=== PATIENT | female | born 2000 | race Caucasian/White ===

== ENCOUNTER → 2022-12-23 | Outpatient (CLI) | payer BC, SELFPAY ==
[2022-12-26 07:08] LABS: Chlamydia By Nucleic Acid AMP Negative (Negative); Gonococcus By Nucleic Acid AMP Negative (Negative)
[2022-12-27 18:15] LABS: HPV Reflexed? NOT INDICATED
== END | disposition home or self-care (01) ==
LOC: LABSPEC 15:35
PROVIDERS: Referring Provider Registered Nurse; Visit Provider Registered Nurse
DX: Z34.90 Encounter for supervision of normal pregnancy, unspecified, unspecified trimester (principal)
CPT/HCPCS: 87077; 87086; 87088; 87186; 87491; 87591; 88175; G0145

== ENCOUNTER → 2022-12-30 | Outpatient (CLI) | payer BC, SELFPAY ==
[2022-12-30 10:21] LABS: Absolute Lymphocyte Count 1.18 X10^3/uL (0.83-4.51); Absolute Neutrophil Count 4.1 X10^3/uL (2.0-7.7); Basophil# 0.04 X10^3/uL; Basophil% 0.7 % (0-1); Eosinophil# 0.03 X10^3/uL; Eosinophils% 0.5 % (0-5); Hemoglobin 13.3 g/dL (12.0-15.0); Lymphocyte # 1.18 X10^3/ul (0.83-4.51); Lymphocyte % 19.9 % (19-41); Mean Corp Hgb Conc 33.3 g/dL (32-36); Mean Corpuscular Hgb 30.3 pg (27.0-32.0); Mean Corpuscular Volume 91.1 fL (81-99); Mean Platelet Vol. 11.6 fl (6.2-12.0); Monocyte# 0.51 X10^3/uL; Monocyte% 8.6 % (0-10); NRBC Flagged by Analyzer 0 % (0-5); Neutrophil # 4.14 X10^3/uL (2.7-7.7); Platelet Count 163 K/mm3 (150-450); RBC Distribution Width CV 11.9 % (11.6-14.6); RBC Distribution Width SD 39.6 fl (35.1-43.9); Red Blood Count 4.39 M/mm3 (4.2-5.4); White Blood Count 5.9 K/mm3 (4.4-11.0)
[2022-12-30 10:42] LABS: Glucose Challenge Gest 1H 50g 107 mg/dL (70-140)
[2022-12-30 11:15] LABS: NATERA MAILED SPECIMEN
[2022-12-30 13:21] LABS: HIV - WCH Non-Reactive (Nonreactive); Hepatitis B Surface Antigen Non-Reactive (Nonreactive); Hepatitis C Antibody Non-Reactive (Nonreactive); Rubella IgG Reactive (Nonreactive); Syphilis Antibodies Non-reactive
== END | disposition home or self-care (01) ==
LOC: PAVLAB 09:39
PROVIDERS: Referring Provider Registered Nurse; Visit Provider Registered Nurse
DX: Z34.81 Encounter for supervision of other normal pregnancy, first trimester (principal); Z31.430 Encounter of female for testing for genetic disease carrier status for procreative management; E66.9 Obesity, unspecified
CPT/HCPCS: 36415; 82950; 85025; 86703; 86762; 86780; 86803; 86850; 86900; 86901; 87340

== ENCOUNTER → 2023-05-07 | Outpatient (CLI) | payer BC, SELFPAY ==
[2023-05-07 10:26] LABS: Absolute Lymphocyte Count 1.13 X10^3/uL (0.83-4.51); Absolute Neutrophil Count 6.3 X10^3/uL (2.0-7.7); Basophil# 0.04 X10^3/uL; Basophil% 0.5 % (0-1); Eosinophil# 0.04 X10^3/uL; Eosinophils% 0.5 % (0-5); Hematocrit 38.8 % (37-47); Hemoglobin 12.9 g/dL (12.0-15.0); Lymphocyte # 1.13 X10^3/ul (0.83-4.51); Mean Corp Hgb Conc 33.2 g/dL (32-36); Mean Corpuscular Hgb 30.4 pg (27.0-32.0); Mean Corpuscular Volume 91.3 fL (81-99); Monocyte# 0.49 X10^3/uL; Monocyte% 6.1 % (0-10); NRBC Flagged by Analyzer 0 % (0-5); Neutrophil # 6.34 X10^3/uL (2.7-7.7); Neutrophil % 78.3 % (47-70); Platelet Count 174 K/mm3 (150-450); RBC Distribution Width CV 12.1 % (11.6-14.6); RBC Distribution Width SD 40.3 fl (35.1-43.9); Red Blood Count 4.25 M/mm3 (4.2-5.4); White Blood Count 8.1 K/mm3 (4.4-11.0)
[2023-05-07 10:39] LABS: Glucose Challenge Gest 1H 50g 143 mg/dL (70-140)
[2023-05-07 11:26] LABS: HIV - WCH Non-Reactive (Nonreactive); Syphilis Antibodies Non-reactive
== END | disposition home or self-care (01) ==
PROVIDERS: Referring Provider Registered Nurse; Visit Provider Registered Nurse
DX: Z34.90 Encounter for supervision of normal pregnancy, unspecified, unspecified trimester (principal)
CPT/HCPCS: 36415; 82950; 85025; 86703; 86780; 86850; 86900; 86901

== ENCOUNTER → 2023-05-13 | Outpatient (CLI) | payer BC, SELFPAY ==
--- OUTSIDE RECORDS SUMMARY | 2023-05-13 07:28 | XMS RPT_ITS ---
Author Name Auto Generated Organization [facility] Care Team Providers Care Fire Suppression Captain Name Role Phone JORGE LUIS CEJA Referring Unavailable JORGE LUIS CEJA Attending Unavailable PROBLEMS No Problem Records Found PROCEDURES No Procedure Records Found RESULTS No Result Records Found ALLERGIES No Allergies Records Found ENCOUNTERS ADMIT/DISCHARGE ACCOUNT NUMBER ADMITTING ENCOUNTER CLASS LOCATION SOURCE 03/06/2023/ 3 [id number] Ambulatory Building:[facility] PAYERS ENCOUNTER GUARANTOR PAYER SUBSCRIBER SOURCE 03/06/2023 MATTHIAS RYANDOB: [id number] [place], [place] [address]Ymr: ~[phone]) Primary Insurance:JOANNE douglas Number: [id number] tive Date: ZEFERINO GUTIERREZOB: [id number] [place] [address] [facility]
[2023-05-13 08:24] LABS: Glucose GTT-Gestation. Fasting 89 mg/dL (<105)
[2023-05-13 09:17] LABS: Glucose GTT-Gestational 1 Hr 201 mg/dL (<190)
[2023-05-13 10:03] LABS: Glucose GTT-Gestational 2 Hr 148 mg/dL (<165)
[2023-05-13 11:55] LABS: Glucose GTT-Gestational 3 Hr 42 L (<145)
== END | disposition home or self-care (01) ==
LOC: LAB 07:25
PROVIDERS: Referring Provider Registered Nurse; Visit Provider Registered Nurse
DX: Z13.1 Encounter for screening for diabetes mellitus (principal)
CPT/HCPCS: 36415; 82951; 82952

== ENCOUNTER → 2023-06-30 | Outpatient (CLI) | payer BC, SELFPAY ==
--- OUTSIDE RECORDS SUMMARY | 2023-06-30 23:08 | XMS RPT_ITS ---
Author Name Auto Generated Organization [facility] Care Team Providers Care Energy Analyst Name Role Phone JORGE LUIS CEJA Referring Unavailable JORGE LUIS CEJA Attending Unavailable PROBLEMS No Problem Records Found PROCEDURES No Procedure Records Found RESULTS No Result Records Found ALLERGIES No Allergies Records Found ENCOUNTERS ADMIT/DISCHARGE ACCOUNT NUMBER ADMITTING ENCOUNTER CLASS LOCATION SOURCE 03/06/2023/ 3 [id number] Ambulatory Building:[facility] PAYERS ENCOUNTER GUARANTOR PAYER SUBSCRIBER SOURCE 03/06/2023 MATTHIAS RYANDOB: [id number] [place], [place] [address]Sew: ~[phone]) Primary Insurance:JOANNE douglas Number: [id number] tive Date: ZEFERINO GUTIERREZOB: [id number] [place] [address] [facility]
== END | disposition home or self-care (01) ==
LOC: LABSPEC 14:37
PROVIDERS: Visit Provider Registered Nurse
DX: Z34.90 Encounter for supervision of normal pregnancy, unspecified, unspecified trimester (principal)
CPT/HCPCS: 87081

== ENCOUNTER → 2023-07-14 | Outpatient (CLI) | payer BC, SELFPAY ==
[2023-07-14 10:50] LABS: Absolute Lymphocyte Count 1.33 X10^3/uL (0.83-4.51); Absolute Neutrophil Count 6.1 X10^3/uL (2.0-7.7); Basophil# 0.03 X10^3/uL; Basophil% 0.4 % (0-1); Eosinophil# 0.04 X10^3/uL; Eosinophils% 0.5 % (0-5); Hematocrit 36.5 % (37-47); Hemoglobin 12.1 g/dL (12.0-15.0); Lymphocyte # 1.33 X10^3/ul (0.83-4.51); Lymphocyte % 16.4 % (19-41); Mean Corp Hgb Conc 33.2 g/dL (32-36); Mean Corpuscular Volume 90.3 fL (81-99); Mean Platelet Vol. 12.5 fl (6.2-12.0); Monocyte# 0.62 X10^3/uL; Monocyte% 7.6 % (0-10); NRBC Flagged by Analyzer 0 % (0-5); Neutrophil # 6.05 X10^3/uL (2.7-7.7); Neutrophil % 74.6 % (47-70); Platelet Count 141 K/mm3 (150-450); RBC Distribution Width CV 12.4 % (11.6-14.6); RBC Distribution Width SD 40.9 fl (35.1-43.9); Red Blood Count 4.04 M/mm3 (4.2-5.4); White Blood Count 8.1 K/mm3 (4.4-11.0)
[2023-07-14 11:15] LABS: ALB/GLOB Ratio 0.6 RATIO (0.9-2.4); AST(SGOT) 13 U/L (15-37); Alanine Aminotransfer ALT/SGPT < 6 U/L (13-56); Albumin, Serum 2.3 g/dL (3.2-5.0); Alkaline Phosphatase 110 U/L (45-117); Anion Gap 6 (5-15); BUN 10 mg/dL (7-18); BUN/Creat Ratio 14.7 RATIO (10-20); Calcium,Total 8.7 mg/dL (8.5-10.1); Chloride 108 mmol/L (98-107); Creatinine, Serum 0.68 mg/dL (0.55-1.02); EST Glomerular Filtration Rate 114 mL/min (>60); Est Glom Filt Rate - Afr Amer 138 mL/min (>60); Globulin 3.9 g/dL (2.2-4.2); Glucose 112 mg/dL (74-106); Potassium 3.7 mmol/L (3.5-5.1); Protein, Total 6.2 g/dL (6.4-8.2); Sodium Level 138 mmol/L (136-145); Uric Acid 3.6 mg/dL (2.6-6.0)
[2023-07-14 13:40] LABS: Creatinine, Urine (random) < 13.00 mg/dL (NO RANGE EST.); Protein, Urine (Random) < 6.0 mg/dL (<11.9)
== END | disposition home or self-care (01) ==
PROVIDERS: Referring Provider Obstetrics & Gynecology; Visit Provider Obstetrics & Gynecology
DX: O16.9 Unspecified maternal hypertension, unspecified trimester (principal); Z3A.00 Weeks of gestation of pregnancy not specified
CPT/HCPCS: 36415; 80053; 82570; 84156; 84550; 85025

== ENCOUNTER 2023-07-15 12:25 | Outpatient (CLI) | payer BC, SELFPAY ==
[2023-07-15 15:12] VITALS: BMI 40.2
--- NOTE | 2023-07-15 15:19 | OB.TRI.PN ---
Progress Notes Date of Service: 07/15/23 Progress Note: Patient presents for triage evaluation secondary to vaginal discharge FHT: 145 Moderate variability reactive no decelerations category I tracing [place]: irregular Contractions Assessment and plan: Rom + negative, Reactive NST, reassuring maternal and status patient discharged to home to follow-up as scheduled. See problem list details for additional plan information. Charges/Coding Multi Select Codes Urinary/Genital Urinary/Genital CPT Codes: 88530-89 non-stress test Interp Assessment & Plan (1) Vaginal discharge during : COMMENT: ROM + negative. (2) Rh negative state in antepartum period: COMMENT: rhogam PRN for bleeding and at 28 weeks, Given 05/07/23. (3) Supervision of high risk in first trimester: COMMENT: PRR ALFRED 07/27/2023 boy Sp: [place] (4) : QUALIFIERS: Weeks of gestation: 38 weeks Qualified Code(s): Z3A.38 - 38 weeks gestation of COMMENT: genetic low risk and carrier screening neg. . declined afp screen.normal anatomy. gbs negative (5) Obesity (BMI 30.0-34.9): COMMENT: early glucose healthy weight in (6) Family history of malignant hyperthermia: (7) Gestational thrombocytopenia: COMMENT: 141 at 38 wks
[2023-07-15 19:46] LABS: ROM Internal Control Test YES-OK TO RESULT pt. (Internal QC); ROM Patient Test Negative (Negative); Record Kit Lot#, ROM+ K1374
--- OUTSIDE RECORDS SUMMARY | 2023-07-16 02:00 | XMS RPT_ITS ---
Author Name Auto Generated Organization [facility] Care Team Providers Care Auto Garage Attendant Name Role Phone JORGE LUIS CEJA Referring Unavailable JORGE LUIS CEJA Attending Unavailable PROBLEMS No Problem Records Found PROCEDURES No Procedure Records Found RESULTS No Result Records Found ALLERGIES No Allergies Records Found ENCOUNTERS ADMIT/DISCHARGE ACCOUNT NUMBER ADMITTING ENCOUNTER CLASS LOCATION SOURCE 03/06/2023/ 3 [id number] Ambulatory Building:[facility] PAYERS ENCOUNTER GUARANTOR PAYER SUBSCRIBER SOURCE 03/06/2023 MATTHIAS RYANDOB: [id number] [place], [place] [address]Vbg: ~[phone] (RS) Primary Insurance:JOANNE douglas Number: [id number] tive Date: ZEFERINO GUTIERREZOB: [id number] [place] [address] [facility]
== END 2023-07-15 14:00 | disposition home or self-care (01) ==
LOC: WPOUT 15:09 → WP 15:09
PROVIDERS: Referring Provider Advanced Practice Midwife; Visit Provider Advanced Practice Midwife
DX: O99.891 Other specified diseases and conditions complicating pregnancy (principal); N89.8 Other specified noninflammatory disorders of vagina; O26.899 Other specified pregnancy related conditions, unspecified trimester; O99.210 Obesity complicating pregnancy, unspecified trimester; Z3A.00 Weeks of gestation of pregnancy not specified
CPT/HCPCS: 59025; 59050; 84112; 99221; G0378

== ENCOUNTER → 2023-07-21 | Outpatient (CLI) | payer BC, SELFPAY ==
[2023-07-21 11:18] LABS: Absolute Lymphocyte Count 1.39 X10^3/uL (0.83-4.51); Absolute Neutrophil Count 5.5 X10^3/uL (2.0-7.7); Basophil# 0.04 X10^3/uL; Basophil% 0.5 % (0-1); Eosinophil# 0.05 X10^3/uL; Eosinophils% 0.6 % (0-5); Hematocrit 37.3 % (37-47); Hemoglobin 12.4 g/dL (12.0-15.0); Lymphocyte # 1.39 X10^3/ul (0.83-4.51); Mean Corp Hgb Conc 33.2 g/dL (32-36); Mean Corpuscular Hgb 29.7 pg (27.0-32.0); Mean Corpuscular Volume 89.4 fL (81-99); Mean Platelet Vol. 12.7 fl (6.2-12.0); Monocyte# 0.76 X10^3/uL; Monocyte% 9.8 % (0-10); NRBC Flagged by Analyzer 0 % (0-5); Neutrophil # 5.45 X10^3/uL (2.7-7.7); Neutrophil % 70.6 % (47-70); Platelet Count 145 K/mm3 (150-450); RBC Distribution Width CV 12.4 % (11.6-14.6); RBC Distribution Width SD 40.7 fl (35.1-43.9); Red Blood Count 4.17 M/mm3 (4.2-5.4); White Blood Count 7.7 K/mm3 (4.4-11.0)
[2023-07-21 11:29] LABS: ALB/GLOB Ratio 0.7 RATIO (0.9-2.4); AST(SGOT) 19 U/L (15-37); Alanine Aminotransfer ALT/SGPT 16 U/L (13-56); Albumin, Serum 2.5 g/dL (3.2-5.0); Alkaline Phosphatase 110 U/L (45-117); Anion Gap 6 (5-15); BUN 8 mg/dL (7-18); BUN/Creat Ratio 14.6 RATIO (10-20); Calcium,Total 8.8 mg/dL (8.5-10.1); Chloride 110 mmol/L (98-107); Creatinine, Serum 0.55 mg/dL (0.55-1.02); EST Glomerular Filtration Rate 146 mL/min (>60); Est Glom Filt Rate - Afr Amer 177 mL/min (>60); Globulin 3.8 g/dL (2.2-4.2); Glucose 81 mg/dL (74-106); Potassium 4.1 mmol/L (3.5-5.1); Protein, Total 6.3 g/dL (6.4-8.2); Sodium Level 137 mmol/L (136-145)
== END | disposition home or self-care (01) ==
PROVIDERS: Referring Provider Obstetrics & Gynecology; Visit Provider Obstetrics & Gynecology
DX: O99.119 Other diseases of the blood and blood-forming organs and certain disorders involving the immune mechanism complicating pregnancy, unspecified trimester (principal); D69.6 Thrombocytopenia, unspecified; Z3A.00 Weeks of gestation of pregnancy not specified
CPT/HCPCS: 36415; 80053; 85025

== ENCOUNTER 2023-08-02 07:00 | Inpatient (IN) | payer BC, SELFPAY ==
[2023-08-02] VITALS (117 sets, daily range): BP systolic 117–184; BP diastolic 54–96; PULSE 59–130; RESP 14–20; TEMP 35.9–37.1; O2SAT 85–108; BMI 40.8
[2023-08-02] MEDS: Lactated Ringers 1,000 ML 50 ML IV (07:45)
[2023-08-02] MEDS: Oxytocin 15 Units/NS 250ml 15 UNITS/250 ML IV.SOLN 2 UNITS IV (07:54)
[2023-08-02 08:10] LABS: Absolute Lymphocyte Count 1.35 X10^3/uL (0.83-4.51); Absolute Neutrophil Count 4.9 X10^3/uL (2.0-7.7); Basophil# 0.03 X10^3/uL; Basophil% 0.4 % (0-1); Eosinophil# 0.04 X10^3/uL; Eosinophils% 0.6 % (0-5); Hemoglobin 11.9 g/dL (12.0-15.0); Lymphocyte # 1.35 X10^3/ul (0.83-4.51); Lymphocyte % 19.1 % (19-41); Mean Corpuscular Hgb 30.2 pg (27.0-32.0); Mean Corpuscular Volume 88.8 fL (81-99); Mean Platelet Vol. 13.7 fl (6.2-12.0); Monocyte# 0.67 X10^3/uL; Monocyte% 9.5 % (0-10); NRBC Flagged by Analyzer 0 % (0-5); Neutrophil # 4.94 X10^3/uL (2.7-7.7); Platelet Count 125 K/mm3 (150-450); RBC Distribution Width CV 12.7 % (11.6-14.6); RBC Distribution Width SD 41.1 fl (35.1-43.9); Red Blood Count 3.94 M/mm3 (4.2-5.4); White Blood Count 7.1 K/mm3 (4.4-11.0)
[2023-08-02 08:55] LABS: AST(SGOT) 17 U/L (15-37); Alanine Aminotransfer ALT/SGPT 14 U/L (13-56); Creatinine, Serum 0.59 mg/dL (0.55-1.02); EST Glomerular Filtration Rate 136 mL/min (>60); Est Glom Filt Rate - Afr Amer 164 mL/min (>60); Estimated Creatinine Clearance 166.51 ml/min; Uric Acid 4.7 mg/dL (2.6-6.0)
[2023-08-02 08:59] LABS: Protein:Creat Ratio 170 mg/g CRE (0-200)
[2023-08-02 09:26] LABS: Syphilis Antibodies Non-reactive
--- NOTE | 2023-08-02 09:54 | HP.PCM.OB_ITS ---
HPI - General General Date of Admission: 08/02/23 HPI Narrative MATTHIAS RYAN, is a 22 F who presents for labor induciton no vb lof admits irregular ctx Maternal Data Information ALFRED Calculator Estimated Delivery Date Method Current WG Current Estimate 07/27/23 Ultrasound #1 40w 6d Other Estimates 08/02/23 LMP (Certain) 40w 0d PFSH PFSH Home Medications multivitamin no.47-iron fum 27 mg-folate no.1 1 mg-dha 300 mg capsule (PNV-DHA) 1 cap PO 01/20/23 [History Last Taken Unknown] Allergy/AdvReac Type Severity Reaction Status Date / Time No Known Allergies Allergy Verified 07/29/23 11:25 Surgical History [place] teeth extracted Social History adopted: No household members: spouse current occupational status: employed 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 pets and animals: Yes (Not managing litterbox) pets and animals: cat(s) and dog(s) history of recent travel: Yes ([place]) out of state: Yes out of country: No sexually active: Yes Smoking Status: Never smoker alcohol intake: never substance use type: marijuana well-balanced diet: daily or most days caffeine: No eating out: 1-3 times/week during the past year weight has: remained stable what type of physical activity do you participate in: yoga and other details: crossfit frequency: 5-6 times per week duration: 45-60 minutes/day darío/baptism: [employer] seatbelt use: always do you feel safe at home: Yes additional social history: - [place] History 1 Elective abortions Hx Para 0 Spontaneous abortions Hx # Term Pregnancies Ectopic pregnancies Hx # Pregnancies Multiple births # of living children Visit Details Expected Delivery Route/Plan Labor Preferences- CB/BF classes: completed labor support person: [place] labor intervention preferences: minimal intervention preferred, open to epidurally if medically indicated pain management options preferred: hydrotherapy cut cord/dad catch: yes : yes PP control planned: discussed discussed possible routes of delivery and associated risks: [] special requests: [] Plans Covid status: declined Flu vaccine: declined Tdap vaccine: declined Rhogam: given 05/07/23 LARC form signed: yes movement and labor precautions reviewed. Problem list reviewed and updated with the most current plan of care details and appropriate orders placed. Relevant counseling for the gestational age provided. Continue routine care and follow up unless otherwise noted in visit notes/problem list details OB Flowsheet Initial Weight: 177 lb Date -?-?-?-?-?-?-?-?-?-?-?-?- EGA Weight BP Urine Prot -?-?-?-?-?-?-?-?-?-?-?-?- Glucose FHR FuHt Pres Dilation -?-?-?-?-?-?-?-?-?-?-?-?- Effaced St Visit Note 12/23/22 -?-?-?-?-?-?-?-?-?-?-?-?- 9w 1d 177 lb (+0 oz) 125/76 Negative -?-?-?-?-?-?-?-?-?-?-?-?- Negative 180 -?-?-?-?-?-?-?-?-?-?-?-?- CRL 22. ALFRED dickey ged. CRL 22. ALFRED changed. 9+1 LC-CRL 22. ALFRED changed. 9+1 LC-CRL 22. ALFRED changed. 9+1. early glucose. desires nipt/carrier. 01/20/23 -?-?-?-?-?-?-?-?-?-?-?-?- 13w 1d 179 lb 8 oz (+2 lb 8 oz) 118/70 Trace -?-?-?-?-?-?-?-?-?-?-?-?- Negative 150 -?-?-?-?-?-?-?-?-?-?-?-?- LC- no vb/crampi ng. no concerns. mfm anatomy ordered. 02/17/23 -?--?-?-?-?-?-?-?-?-?-?-?- 17w 1d 185 lb 4 oz (+8 lb 4 oz) 133/84 Negative -?-?-?-?-?-?-?-?-?-?-?-?- Negative 150 -?-?-?-?-?-?-?-?-?-?-?-?- SM- no vb crampi ng declined afp 03/17/23 -?-?-?-?-?-?-?-?-?-?-?-?- 21w 1d 191 lb 2 oz (+14 lb 2 oz) 128/79 Negative -?-?-?-?-?-?-?-?-?-?-?-?- Negative 155 -?-?-?-?-?-?-?-?-?-?-?-?- JV- no lof, vagi nal bleeding, or cramping. She wants to do a water if possible. planning to go on a cruise in 2 weeks. has up to 24 weeks to be a cruise. 04/14/23 -?-?-?-?-?-?-?-?-?-?-?-?- 25w 1d 200 lb 2 oz (+23 lb 2 oz) Negative -?-?-?-?-?-?-?-?-?-?-?-?- Negative 140 25 -?-?-?-?-?-?-?-?-?-?-?-?- LC- no vb/ctx/lo f. good fm. LC- no vb/ctx/lof. good fm. 28 week labs ordered. 05/07/23 -?-?-?-?-?-?-?-?-?-?-?-?- 28w 3d 203 lb (+26 lb) 118/82 Negative -?-?-?-?-?-?-?-?-?-?-?-?- Negative 165 29 -?-?-?--?-?-?-?-?-?-?-?-?- MH-No VB, LOF. Nickolas mary FM. Larc, 28 wk labs, rhogam. Declines tdap. 05/13/23 -?-?-?-?-?-?-?-?-?-?-?-?- 29w 2d 203 lb 6 oz (+26 lb 6 oz) 131/79 Negative -?-?-?-?-?-?-?-?-?-?-?-?- Negative 150 30 -?-?-?-?-?-?-?-?-?-?-?-?- kw- no vb/lof/ct x. good fm. passed 3 hour gct. 05/26/23 -?-?-?-?-?-?-?-?-?-?-?-?- 31w 1d 204 lb 8 oz (+27 lb 8 oz) 123/82 Negative -?-?-?-?-?-?-?-?-?-?-?-?- Negative 150 32 -?-?-?-?-?-?-?-?-?-?-?-?- LC- no vb/ctx/lo f. good fm. no concerns today. 06/09/23 -?-?-?-?-?-?-?-?-?-?-?-?- 33w 1d 210 lb (+33 lb) 125/81 Negative -?-?-?-?-?-?-?-?-?-?-?-?- Negative 150 34 -?-?-?-?-?-?-?-?-?-?-?-?- SM- no vb lof go od fm n oreuglar ctx discussed no water able to occur at [facility] but hydrotherapy is absolutley supported if meets criteria 06/24/23 -?-?-?-?-?-?-?-?-?-?-?-?- 35w 2d 213 lb (+36 lb) 130/82 Negative -?-?-?-?-?-?-?-?-?-?-?-?- Negative 140 36 Cephalic -?-?-?-?-?-?-?-?-?-?-?-?- kw-no vb/lof/reg ctx. good fm. no concerns today 06/30/23 -?-?-?-?-?-?-?-?-?-?-?-?- 36w 1d 217 lb 8 oz (+40 lb 8 oz) 129/86 Negative -?-?-?-?-?-?-?-?-?-?-?-?- Negative 156 37 Cephalic 0 -?-?-?-?-?-?-?-?-?-?-?-?- -4 MH-No VB , LOF. Good FM. Irreg BH. GBS done 07/07/23 -?-?-?-?-?-?-?-?-?-?-?-?- 37w 1d 220 lb 2 oz (+43 lb 2 oz) 124/83 Negative -?-?-?-?-?-?-?-?-?-?-?-?- Negative 145 37 Cephalic 0 -?-?-?-?-?-?-?-?-?-?-?-?- -4 LC- no v b/ctx/lof. good fm. gbs neg 07/14/23 -?-?-?-?-?-?-?-?-?-?-?-?- 38w 1d 222 lb (+45 lb) 148/87 138/88 Negative -?-?-?-?-?-?-?-?-?-?-?-?- Negative 145 38 Cephal[place] 1 -?-?-?-?-?-?-?-?-?-?-?-?- 30 -3 JV- bedsid e us to confirm vtx. PIH labs ordered for trending upward pressures. 07/21/23 -?-?-?-?-?-?-?-?-?-?-?-?- 39w 1d 220 lb (+43 lb) 129/85 Negative -?-?-?-?-?-?-?-?-?-?-?-?- Negative 140 39 Cephalic 1 .5 -?-?-?-?-?-?-?-?-?-?-?-?- SM- no vb lof go od fm no regular ctx no julian bv SM- no vb lof good fm no reg ular ctx no julian bv REPEAT PREE LABS TODAY due to 141 platelets last week to confirm stability 07/29/23 -?-?-?-?-?-?-?-?--?-?-?-?- 40w 2d 221 lb (+44 lb) 132/88 -?-?-?-?-?-?-?-?-?-?-?-?- 140 40 Cephalic 3 -?-?-?-?-?-?-?-?-?-?-?-?- 70 -2 SM- no vb lof good fm no regular ctx SM- no vb lof some decresaed fm- will get nst now, reassuring overall. discussed if persistent recommend earlier IOL. no regular ctx Vital Signs Vital Signs Vital Signs: 08/02/23 07:20 08/02/23 07:20 08/02/23 07:38 Temperature Temperature Source Temporal Pulse Rate 75 Respiratory Rate Blood Pressure 154/80 H BP Systolic 154 BP Diastolic 80 08/02/23 07:38 08/02/23 07:38 08/02/23 07:51 Temperature 98.8 F Temperature Source Pulse Rate Respiratory Rate 16 Blood Pressure 158/73 H BP Systolic 158 BP Diastolic 73 08/02/23 07:51 08/02/23 08:29 08/02/23 08:30 Temperature Temperature Source Temporal Pulse Rate 73 Respiratory Rate Blood Pressure 136/77 H BP Systolic 136 BP Diastolic 77 08/02/23 08:30 08/02/23 08:29 08/02/23 08:29 Temperature 98.1 F Temperature Source Pulse Rate 67 Respiratory Rate 16 Blood Pressure BP Systolic BP Diastolic Weight Weight: 223 lb Body Mass Index (BMI) 40.8 Labs Labs Labs: Blood Type O NEGATIVE Antibody Screen NEGATIVE Hct 35.0 % (37-47) L Hgb 11.9 g/dL (12.0-15.0) L Syphilis Total Ab Non-reactive Rubella IgG Antibody Reactive (Nonreactive) Hep Bs Antigen Non-Reactive (Nonreactive) Hepatitis C Antibody Non-Reactive (Nonreactive) Chlamydia DNA (ANA) Negative (Negative) N.gonorrhoeae DNA (ANA) Negative (Negative) HIV 1&2 Antibody Non-Reactive (Nonreactive) Glucose 1 Hr 50 gm 143 mg/dL (70-140) H Gest Glucose Tolerance MG/DL Assessment & Plan (1) Decreased movements in third trimester: (2) Vaginal discharge during : COMMENT: ROM + negative. (3) Gestational thrombocytopenia: COMMENT: 141 at 38 wks (4) Rh negative state in antepartum period: COMMENT: rhogam PRN for bleeding and at 28 weeks, Given 05/07/23. (5) Supervision of high risk in first trimester: COMMENT: PRR ALFRED 07/27/2023 boy Sp: [place] (6) : QUALIFIERS: Weeks of gestation: 40 weeks Qualified Code(s): Z 3A.40 - 40 weeks gestation of COMMENT: genetic low risk and carrier screening neg. . declined afp screen.normal anatomy. gbs negative (7) Obesity (BMI 30.0-34.9): COMMENT: early glucose healthy weight in PLAN: Plan Patient presents IOL, plan management for with pitocin/AROM. Pain management: prefers minimal intervention. GBS negative. Management of any complications: none I have reviewed the [facility] and made any clinically relevant updates.
--- NOTE | 2023-08-02 09:54 | PCM.HP.OB ---
HPI - General General Date of Admission: 08/02/23 HPI Narrative MATTHIAS RYAN, is a 22 F who presents for labor induciton no vb lof admits irregular ctx Maternal Data Information ALFRED Calculator Estimated Delivery Date Method Current WG Current Estimate 07/27/23 Ultrasound #1 40w 6d Other Estimates 08/02/23 LMP (Certain) 40w 0d PFSH PFSH Home Medications multivitamin no.47-iron fum 27 mg-folate no.1 1 mg-dha 300 mg capsule (PNV-DHA) 1 cap PO 01/20/23 [History Last Taken Unknown] Allergy/AdvReac Type Severity Reaction Status Date / Time No Known Allergies Allergy Verified 07/29/23 11:25 Surgical History [place] teeth extracted Social History adopted: No household members: spouse current occupational status: employed 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 [employer] pets and animals: Yes (Not managing litterbox) pets and animals: cat(s) and dog(s) history of recent travel: Yes ([place]) out of state: Yes out of country: No sexually active: Yes Smoking Status: Never smoker alcohol intake: never substance use type: marijuana well-balanced diet: daily or most days caffeine: No eating out: 1-3 times/week during the past year weight has: remained stable what type of physical activity do you participate in: yoga and other details: crossfit frequency: 5-6 times per week duration: 45-60 minutes/day darío/buddhism: Scientologist seatbelt use: always do you feel safe at home: Yes additional social history: - [place] History 1 Elective abortions Hx Para 0 Spontaneous abortions Hx # Term Pregnancies Ectopic pregnancies Hx # Pregnancies Multiple births # of living children Visit Details Expected Delivery Route/Plan Labor Preferences- CB/BF classes: completed labor support person: [place] labor intervention preferences: minimal intervention preferred, open to epidurally if medically indicated pain management options preferred: hydrotherapy cut cord/dad catch: yes : yes PP control planned: discussed discussed possible routes of delivery and associated risks: [] special requests: [] Plans Covid status: declined Flu vaccine: declined Tdap vaccine: declined Rhogam: given 05/07/23 LARC form signed: yes movement and labor precautions reviewed. Problem list reviewed and updated with the most current plan of care details and appropriate orders placed. Relevant counseling for the gestational age provided. Continue routine care and follow up unless otherwise noted in visit notes/problem list details OB Flowsheet Initial Weight: 177 lb Date <del>?</del> EGA Weight BP Urine Prot <del>?</del> Glucose FHR FuHt Pres Dilation <del>?</del> Effaced St Visit Note 12/23/22 <del>?</del> 9w 1d 177 lb (+0 oz) 125/76 Negative <del>?</del> Negative 180 <del>?</del> CRL 22. ALFRED changed. CRL 22. ALFRED changed. 9+1 LC-CRL 22. ALFRED changed. 9+1 LC-CRL 22. ALFRED changed. 9+1. early glucose. desires nipt/carrier. 01/20/23 <del>?</del> 13w 1d 179 lb 8 oz (+2 lb 8 oz) 118/70 Trace <del>?</del> Negative 150 <del>?</del> LC- no vb/cramping. no concerns. mfm anatomy ordered. 02/17/23 <del>?</del> 17w 1d 185 lb 4 oz (+8 lb 4 oz) 133/84 Negative <del>?</del> Negative 150 <del>?</del> SM- no vb cramping declined afp 03/17/23 <del>?</del> 21w 1d 191 lb 2 oz (+14 lb 2 oz) 128/79 Negative <del>?</del> Negative 155 <del>?</del> JV- no lof, vaginal bleeding, or cramping. She wants to do a water if possible. planning to go on a cruise in 2 weeks. has up to 24 weeks to be a cruise. 04/14/23 <del>?</del> 25w 1d 200 lb 2 oz (+23 lb 2 oz) Negative <del>?</del> Negative 140 25 <del>?</del> LC- no vb/ctx/lof. good fm. LC- no vb/ctx/lof. good fm. 28 week labs ordered. 05/07/23 <del>?</del> 28w 3d 203 lb (+26 lb) 118/82 Negative <del>?</del> Negative 165 29 <del>?</del> MH-No VB, LOF. Good FM. Larc, 28 wk labs, rhogam. Declines tdap. 05/13/23 <del>?</del> 29w 2d 203 lb 6 oz (+26 lb 6 oz) 131/79 Negative <del>?</del> Negative 150 30 <del>?</del> kw- no vb/lof/ctx. good fm. passed 3 hour gct. 05/26/23 <del>?</del> 31w 1d 204 lb 8 oz (+27 lb 8 oz) 123/82 Negative <del>?</del> Negative 150 32 <del>?</del> LC- no vb/ctx/lof. good fm. no concerns today. 06/09/23 <del>?</del> 33w 1d 210 lb (+33 lb) 125/81 Negative <del>?</del> Negative 150 34 <del>?</del> SM- no vb lof good fm n oreuglar ctx discussed no water able to occur at [facility] but hydrotherapy is absolutley supported if meets criteria 06/24/23 <del>?</del> 35w 2d 213 lb (+36 lb) 130/82 Negative <del>?</del> Negative 140 36 Cephalic <del>?</del> kw-no vb/lof/reg ctx. good fm. no concerns today 06/30/23 <del>?</del> 36w 1d 217 lb 8 oz (+40 lb 8 oz) 129/86 Negative <del>?</del> Negative 156 37 Cephalic 0 <del>?</del> -4 MH-No VB, LOF. Good FM. Irreg BH. GBS done 07/07/23 <del>?</del> 37w 1d 220 lb 2 oz (+43 lb 2 oz) 124/83 Negative <del>?</del> Negative 145 37 Cephalic 0 <del>?</del> -4 LC- no vb/ctx/lof. good fm. gbs neg 07/14/23 <del>?</del> 38w 1d 222 lb (+45 lb) 148/87 138/88 Negative <del>?</del> Negative 145 38 Cephalic 1 <del>?</del> 30 -3 JV- bedside us to confirm vtx. PIH labs ordered for trending upward pressures. 07/21/23 <del>?</del> 39w 1d 220 lb (+43 lb) 129/85 Negative <del>?</del> Negative 140 39 Cephalic 1.5 <del>?</del> SM- no vb lof good fm no regular ctx no julian bv SM- no vb lof good fm no regular ctx no julian bv REPEAT PREE LABS TODAY due to 141 platelets last week to confirm stability 07/29/23 <del>?</del> 40w 2d 221 lb (+44 lb) 132/88 <del>?</del> 140 40 Cephalic 3 <del>?</del> 70 -2 SM- no vb lof good fm no regular ctx SM- no vb lof some decresaed fm- will get nst now, reassuring overall. discussed if persistent recommend earlier IOL. no regular ctx Vital Signs Vital Signs Vital Signs: 08/02/23 07:20 08/02/23 07:20 08/02/23 07:38 Temperature Temperature Source Temporal Pulse Rate 75 Respiratory Rate Blood Pressure 154/80 H BP Systolic 154 BP Diastolic 80 08/02/23 07:38 08/02/23 07:38 08/02/23 07:51 Temperature 98.8 F Temperature Source Pulse Rate Respiratory Rate 16 Blood Pressure 158/73 H BP Systolic 158 BP Diastolic 73 08/02/23 07:51 08/02/23 08:29 08/02/23 08:30 Temperature Temperature Source Temporal Pulse Rate 73 Respiratory Rate Blood Pressure 136/77 H BP Systolic 136 BP Diastolic 77 08/02/23 08:30 08/02/23 08:29 08/02/23 08:29 Temperature 98.1 F Temperature Source Pulse Rate 67 Respiratory Rate 16 Blood Pressure BP Systolic BP Diastolic Weight Weight: 223 lb Body Mass Index (BMI) 40.8 Labs Labs Labs: Blood Type O NEGATIVE Antibody Screen NEGATIVE Hct 35.0 % (37-47) L Hgb 11.9 g/dL (12.0-15.0) L Syphilis Total Ab Non-reactive Rubella IgG Antibody Reactive (Nonreactive) Hep Bs Antigen Non-Reactive (Nonreactive) Hepatitis C Antibody Non-Reactive (Nonreactive) Chlamydia DNA (ANA) Negative (Negative) N.gonorrhoeae DNA (ANA) Negative (Negative) HIV 1&2 Antibody Non-Reactive (Nonreactive) Glucose 1 Hr 50 gm 143 mg/dL (70-140) H Gest Glucose Tolerance MG/DL Assessment & Plan (1) Decreased movements in third trimester: (2) Vaginal discharge during : COMMENT: ROM + negative. (3) Gestational thrombocytopenia: COMMENT: 141 at 38 wks (4) Rh negative state in antepartum period: COMMENT: rhogam PRN for bleeding and at 28 weeks, Given 05/07/23. (5) Supervision of high risk in first trimester: COMMENT: PRR ALFRED 07/27/2023 boy Sp: [place] (6) : QUALIFIERS: Weeks of gestation: 40 weeks Qualified Code(s): Z3A.40 - 40 weeks gestation of COMMENT: genetic low risk and carrier screening neg. . declined afp screen.normal anatomy. gbs negative (7) Obesity (BMI 30.0-34.9): COMMENT: early glucose healthy weight in PLAN: Plan Patient presents IOL, plan management for with pitocin/AROM. Pain management: prefers minimal intervention. GBS negative. Management of any complications: none I have reviewed the [facility] and made any clinically relevant updates.
[2023-08-02] MEDS: CHLORHEXIDINE GLUC 2% CLOTH 1 EACH TOWELETTE TOPICAL ×2 (12:02→21:27)
[2023-08-02] MEDS: fentaNYL 100 MCG/2 ML Ampul IV (16:50)
[2023-08-02] MEDS: hydrALAZINE 20 MG/ML Vial 5 MG IV (17:16)
[2023-08-02] MEDS: hydrALAZINE 20 MG/ML Vial 10 MG IV ×3 (17:45→19:59)
[2023-08-02] MEDS: Magnesium Sulfate 4gm/100mL 4 GM/100 ML IV.SOLN. IV (17:54)
[2023-08-02] MEDS: Magnesium Sulfate 20 GM/500 ML BAG IV (18:14)
[2023-08-02 18:16] LABS: Hematocrit 33.4 % (37-47); Hemoglobin 11.3 g/dL (12.0-15.0); Mean Corp Hgb Conc 33.8 g/dL (32-36); Mean Corpuscular Hgb 30.3 pg (27.0-32.0); Mean Corpuscular Volume 89.5 fL (81-99); Mean Platelet Vol. 13.6 fl (6.2-12.0); POSITIVE COUNT YES; RBC Distribution Width CV 12.4 % (11.6-14.6); RBC Distribution Width SD 40.3 fl (35.1-43.9); Red Blood Count 3.73 M/mm3 (4.2-5.4); White Blood Count 14.5 K/mm3 (4.4-11.0)
[2023-08-02] MEDS: hydrALAZINE 10 MG Tablet 20 MG PO (18:23)
[2023-08-02 18:35] LABS: ALB/GLOB Ratio 0.7 RATIO (0.9-2.4); AST(SGOT) 20 U/L (15-37); Alanine Aminotransfer ALT/SGPT 13 U/L (13-56); Albumin, Serum 2.5 g/dL (3.2-5.0); Alkaline Phosphatase 108 U/L (45-117); Anion Gap 13 (5-15); BUN 9 mg/dL (7-18); BUN/Creat Ratio 16.2 RATIO (10-20); Calcium,Total 9.1 mg/dL (8.5-10.1); Chloride 92 mmol/L (98-107); Creatinine, Serum 0.56 mg/dL (0.55-1.02); EST Glomerular Filtration Rate 144 mL/min (>60); Est Glom Filt Rate - Afr Amer 175 mL/min (>60); Estimated Creatinine Clearance 175.43 ml/min; Globulin 3.5 g/dL (2.2-4.2); Glucose 75 mg/dL (74-106); Potassium 3.5 mmol/L (3.5-5.1); Sodium Level 123 mmol/L (136-145)
[2023-08-02 18:37] LABS: Scan Indicated on CBC? Y/N YES- FLAGS NOTED
[2023-08-02] MEDS: Lactated Ringers 1,000 ML 15 ML IV (19:30)
[2023-08-02] MEDS: 0.9% Saline Lock 10 ML Syringe IV ×2 (20:00→23:53)
[2023-08-02] MEDS: LACTATED RINGERS 500 ML 999 ML IV (22:40)
[2023-08-02] MEDS: fentaNYL-bupivacaine (epidural) 100 ML BAG EPIDURAL (23:45)
[2023-08-03] VITALS (135 sets, daily range): BP systolic 113–177; BP diastolic 54–119; PULSE 81–120; RESP 13–18; TEMP 36.1–37.3; O2SAT 80–100
[2023-08-03] MEDS: Oxytocin 15 Units/NS 250ml 15 UNITS/250 ML IV.SOLN 12 UNITS IV (02:15)
[2023-08-03] MEDS: Magnesium Sulfate 20 GM/500 ML BAG IV ×2 (04:17→14:02)
[2023-08-03] MEDS: Labetalol 100 MG Tablet PO (04:18)
--- NOTE | 2023-08-03 04:20 | PN_ITS ---
Progress Note now 7-8 cm, head asynclitic current tracing: FHT: 130 Moderate variability reactive no decelerations category I tracing [place]: q 3 Contractions reviewed tracing abnormalities since last note: no significant A/P: likely prolonged labor due to positioning, magnesium administration. improvement with epidural. will switch to labetalol due to elevated heart rate
[2023-08-03] MEDS: fentaNYL-bupivacaine (epidural) 100 ML BAG EPIDURAL (05:25)
[2023-08-03] MEDS: CHLORHEXIDINE GLUC 2% CLOTH 1 EACH TOWELETTE TOPICAL (09:21)
[2023-08-03] MEDS: Acetaminophen 500 MG Tablet PO (11:05)
[2023-08-03] MEDS: Sodium Citrate/Citric Acid 30 ML UDC PO (11:05)
--- NOTE | 2023-08-03 11:05 | PCM.PN.BLA ---
Progress Note Patient evaluated and still 8 cm after almost 8 hours. Pitocin was increased and multiple positions were tried. 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 Patient is agreeable
--- NOTE | 2023-08-03 11:06 | OP.PCM_ITS ---
Assessment & Plan (1) Arrest of dilation, delivered, current hospitalization: COMMENT: 8 cm for almost 8 hours, 27 hours of pitocin, 22 hours of ROM (2) Gestational thrombocytopenia: COMMENT: 141 at 38 wks (3) Rh negative state in antepartum period: COMMENT: rhogam PRN for bleeding and at 28 weeks, Given 05/07/23. (4) Supervision of high risk in first trimester: COMMENT: PRR ALFRED 07/27/2023 boy Sp: [place] (5) : QUALIFIERS: Weeks of gestation: 40 weeks Qualified Code(s): Z3A.40 - 40 weeks gestation of COMMENT: genetic low risk and carrier screening neg. . declined afp screen.normal anatomy. gbs negative (6) Obesity (BMI 30.0-34.9): COMMENT: early glucose healthy weight in (7) Preeclampsia, severe: COMMENT: developed intrapartum, nl labs, severe range pressures requiring multiple doses of hydralazine, labetalol. on magnesium (8) delivery delivered: COMMENT: SM LTCS SM 41 IOL postdates AOD 8 cm suspected CPD. preeclampsia on mag boy Maternal Data Information ALFRED Calculator Estimated Delivery Date Method Current WG Current Estimate 07/27/23 Ultrasound #1 41w 0d Other Estimates 08/02/23 LMP (Certain) 40w 1d Final ALFRED Source: LMP Gestational age: 39 Details Operative Information Date of Procedure: 08/03/23 Pre-Operative Diagnosis: see a/p diagnoses Post-Operative Diagnosis: same Indications Narrative: surgeon: Vidya Tamez MD Procedure Type: low transverse molding and trim installer #1: Leonidas Mccrary Type of Anesthesia: Epidural Special Medications: none Drain: Bradshaw to straight drain Estimated Blood Loss: 600 Fluids Replaced: crystalloid Procedure Start Time: 11:41 Procedure Stop Time: 12:17 Findings Description of Procedure: Patient presented for induction of labor secondary to postdates. She was initially 3 cm upon presentation and was started on Pitocin, underwent artificial rupture of membranes, developed severe range blood pressures and was started on magnesium and given IV hydralazine. Patient made slow cervical change and developed recurrent severe range blood pressures and it was suspected that the rest of dilation was due to occiput posterior presentation and asynclitic presentation as well as lack of relaxation of the pelvic floor therefore the patient got an epidural. After several more hours patient made change to 8 cm. However, after almost 8 hours the patient was still only 8 cm despite all interventions to help support labor and restitution to NESSA presentation of the vertex. Decision was then made to proceed with primary low-transverse . Patient had been on Pitocin for 27 hours and ruptured for 22 hours. It was discussed with the patient that unless her next baby was significantly smaller and she came in in active labor she would likely not be a good candidate for a trial of labor after . The patient was placed in the dorsal supine position with leftward tilt. Patient was prepped and draped in the normal sterile fashion. Pfannenstiel skin incision was made with the scalpel and carried through to the underlying layer of fascia with the scalpel. Fascia was nicked in the midline and the incision extended laterally. The rectus bellies were dissected off superiorly and inferiorly with out complication both sharply and bluntly. The peritoneum was entered digitally. The incision was stretched and a low transverse uterine incision was made with the scalpel. The 's head was delivered atraumatically followed by the anterior and posterior shoulders without complication the rest of the delivered. The cord was clamped and cut and the was handed off to awaiting nurse. The placenta was delivered spontaneously immediately following and was noted to be intact and have a three- vessel cord. The uterus was exteriorized cleared of all clots and debris, and the incision was closed in a double layer closure using #1 Monocryl. The ovaries and fallopian tubes were noted to be within normal limits. The uterus was returned to the maternal abdomen and gutters were cleared of all clots and debris. The peritoneum was closed with 3-0 Monocryl in a running fashion. Gloves were changed prior to fascial closure. Fascia was closed with 0 PDS in a running fashion. Subcutaneous tissue was copiously irrigated and the skin was closed with 3-0 Monocryl in a subcuticular fashion. Mepilex dressing was applied without complication. Patient was taken to recovery in stable condition. Placental Delivery Description: Spontaneous Placenta Disposition: [facility] Cord Vessel Description: 3 Vessels Delayed Cord Clamping: Yes Complications Risks of Surgery Discussed w/Patient: Bleeding, Infection, Need for Future C- Sections and Injury to surrounding structure(s) including bowel and bladder Complications: none Admit VTE Documentation VTE Present on Admission: No VTE Mechan Device Prophylaxis: SCD's Procedures Urinary/Genital [id number]: [id number] [facility]
--- NOTE | 2023-08-03 11:11 | DCINST_ITS ---
Discharge Instructions Diet Discharge Diet: No restrictions Activity Discharge Activity: May Not Drive (for 2 weeks or while taking narcotic pain medications.), May Shower and May Take a Tub Bath (in 7 days) May shower in (days): 0 May resume sexual activity in: 4-6 weeks Weight Bearing Status: Full weight bearing Lifting Restrictions: 20 pounds Dressing / Incision Call your doctor if your incision/area has: Continuous Slow Oozing, Sudden Increased Bleeding, Increased Pain/ Swelling, Increased Redness and Foul Smelling Discharge Call your doctor if you observe: Fever of 101 or Higher and Using more than 1 pad per hour (for 2 hours) Suture Line Care: Avoid Pulling/Pushing and Avoid Pinching/Bending Cleanse incision/area with: Soap & Water and Keep Dressing Clean & Dry Follow Up Care Please Follow Up With: Vidya Tamez MD When: Call [phone] to make an appointment for an incision check in 1-2 weeks. Test Results: Test results from this visit will be discussed in further detail at your follow- up appointment, if applicable. Discharge Plan Admission Admit Date/Time: 08/02/23 07:00 Attending Provider: Vidya Tamez Primary Care Provider: Care Physician,Tracy Primary Discharge Orders/Prescriptions Prescriptions: New oxycodone-acetaminophen [Percocet] 5-325 mg tablet 1 tab PO Q6H PRN (Reason: pain) 7 Days Qty: 20 0RF naproxen [naproxen] 500 mg tablet 500 mg PO BID PRN PRN (Reason: Pain) Qty: 30 1RF No Action PNV-DHA 27 mg iron-1 mg -300 mg capsule 1 cap PO Referrals / Follow Up: Care Physician,Tracy Primary [Primary Care Provider] -
[2023-08-03] MEDS: Cefazolin 2 GM in 0.9% Normal Saline (100mL Bag) 100 ML IV (11:15)
[2023-08-03] MEDS: Azithromycin 500 MG in Dextrose 5%-Water (250mL Bag) 250 ML 250 MG IV (11:30)
[2023-08-03] MEDS: Oxytocin 15 Units/NS 250ml 15 UNITS/250 ML IV.SOLN 83 UNITS IV (12:35)
[2023-08-03] MEDS: Ketorolac 30 MG/ML Syringe IV ×2 (13:03→18:37)
[2023-08-03 15:09] LABS: Hemoglobin 10.8 g/dL (12.0-15.0); Mean Corp Hgb Conc 33.8 g/dL (32-36); Mean Corpuscular Hgb 29.9 pg (27.0-32.0); Mean Corpuscular Volume 88.6 fL (81-99); Mean Platelet Vol. 13.2 fl (6.2-12.0); Platelet Count 118 K/mm3 (150-450); RBC Distribution Width CV 12.9 % (11.6-14.6); Red Blood Count 3.61 M/mm3 (4.2-5.4); White Blood Count 19.3 K/mm3 (4.4-11.0)
[2023-08-03] MEDS: Lactated Ringers 1,000 ML 30 ML IV (15:31)
[2023-08-03] MEDS: Acetaminophen 500 MG Tablet 1000 MG PO ×2 (17:38→23:34)
[2023-08-03] MEDS: Enoxaparin 40 MG/0.4 ML Syringe SC (23:34)
[2023-08-04] VITALS (14 sets, daily range): BP systolic 91–138; BP diastolic 41–70; PULSE 70–98; RESP 14–18; TEMP 36.5–36.8; O2SAT 92–98
[2023-08-04] MEDS: Magnesium Sulfate 20 GM/500 ML BAG IV (00:18)
[2023-08-04] MEDS: 0.9% Saline Lock 10 ML Syringe IV ×3 (01:09→06:47)
[2023-08-04] MEDS: Ketorolac 30 MG/ML Syringe IV ×2 (01:09→06:47)
--- NOTE | 2023-08-04 02:27 | NURSING ---
Patient 89% on room air while asleep. 2 L NC applied now 94%. Awakens easily with care. Denies shortness of breath or sleepiness. Mg infusion d/c at this time.
[2023-08-04] MEDS: Acetaminophen 500 MG Tablet 1000 MG PO ×4 (06:06→23:45)
[2023-08-04 06:48] LABS: Hematocrit 31.2 % (37-47); Hemoglobin 10.3 g/dL (12.0-15.0); Mean Corpuscular Hgb 29.9 pg (27.0-32.0); Mean Corpuscular Volume 90.7 fL (81-99); Mean Platelet Vol. 13.6 fl (6.2-12.0); Platelet Count 119 K/mm3 (150-450); RBC Distribution Width CV 13.3 % (11.6-14.6); RBC Distribution Width SD 43.8 fl (35.1-43.9); Red Blood Count 3.44 M/mm3 (4.2-5.4); White Blood Count 17.6 K/mm3 (4.4-11.0)
[2023-08-04 07:33] LABS: ALB/GLOB Ratio 0.6 RATIO (0.9-2.4); AST(SGOT) 20 U/L (15-37); Alanine Aminotransfer ALT/SGPT 14 U/L (13-56); Albumin, Serum 2.1 g/dL (3.2-5.0); Alkaline Phosphatase 91 U/L (45-117); Anion Gap 5 (5-15); BUN 13 mg/dL (7-18); BUN/Creat Ratio 18.9 RATIO (10-20); Calcium,Total 6.9 mg/dL (8.5-10.1); Chloride 106 mmol/L (98-107); Creatinine, Serum 0.69 mg/dL (0.55-1.02); EST Glomerular Filtration Rate 112 mL/min (>60); Est Glom Filt Rate - Afr Amer 136 mL/min (>60); Estimated Creatinine Clearance 142.38 ml/min; Globulin 3.4 g/dL (2.2-4.2); Glucose 76 mg/dL (74-106); Potassium 3.9 mmol/L (3.5-5.1); Protein, Total 5.5 g/dL (6.4-8.2); Sodium Level 133 mmol/L (136-145)
--- NOTE | 2023-08-04 08:57 | PN.OBGYN_ITS ---
Subjective Subjective Patient doing well without complaints. Tolerating PO. Ambulating and voiding without difficulty. Feeding well. Denies chest pain, shortness of breath, calf pain/swelling, fevers, chills, lightheadedness. Objective Data Objective Data Vital Signs: Vital Signs Temp Pulse Resp BP Pulse Ox O2 Del Method O2 Flow Rate 98.1 F 70 18 116/66 97 Room Air 2 08/04/23 08:05 08/04/23 08:05 08/04/23 08:05 08/04/23 08:05 08/04/23 08:05 08/04/23 08:05 08/04/23 05:15 Oxygen Flow Rate (L/min) 2 Oxygen Delivery Method Room Air Weight: 223 lb Body Mass Index (BMI) 40.8 Intake & Output: Intake and Output for Last 24 Hours 08/02/23 08/03/23 08/04/23 23:59 23:59 23:59 Intake Total 2198.60 / 2198.60 3279.44 / 3279.44 1118.67 / 1118.67 Output Total 1500 / 1500 4175 / 4175 1800 / 1800 Balance 698.60 / 698.60 -895.56 / -895.56 -681.33 / -681.33 Lab / Micro Data Attestation: I reviewed the patient's lab results. 08/04/23 06:10 08/04/23 06:10 Labs: Laboratory Results - last 24 hr 08/03/23 14:50: WBC 19.3 H, RBC 3.61 L, Hgb 10.8 L, Hct 32.0 L, MCV 88.6, MCH 29.9, MCHC 33.8, RDW Std Deviation 42.0, RDW Coeff of Heather 12.9, Plt Count 118 L, MPV 13.2 H 08/04/23 06:10: WBC 17.6 H, RBC 3.44 L, Hgb 10.3 L, Hct 31.2 L, MCV 90.7, MCH 29.9, MCHC 33.0, RDW Std Deviation 43.8, RDW Coeff of Heather 13.3, Plt Count 119 L, MPV 13.6 H, Sodium 133 L, Potassium 3.9, Chloride 106, Carbon Dioxide 22.0, Anion Gap 5, BUN 13, Creatinine 0.69, Estim Creat Clear Calc 142.38, Est GFR (MDRD) Af Amer 136, Est GFR (MDRD) Non-Af 112, BUN/Creatinine Ratio 18.9, Glucose 76, Calcium 6.9 L, Total Bilirubin 0.40, AST 20, ALT 14, Alkaline Phosphatase 91, Total Protein 5.5 L, Albumin 2.1 L, Globulin 3.4, Albumin/Globu terra Ratio 0.6 L Physical Exam Const alert and no apparent distress Chest inspection of chest normal Resp normal respiratory effort, normal air movement and no retractions Effort and Inspection: able to speak in complete sentences Auscultation: clear to auscultation bilaterally Cardio regular rate and regular rhythm GI normal to inspection, nondistended, normoactive bowel sounds Uterus Palpation: uterus fundus firm Extremity normal to inspection Skin no rashes or lesions noted Skin Narrative: dressing intact, drainage marked- no further. Neuro oriented x3 and deep tendon reflexes 2+ bilaterally Psych mental status grossly normal Assessment & Plan (1) delivery delivered: COMMENT: SM LTCS SM 41 IOL postdates AOD 8 cm suspected CPD. preeclampsia on mag boy (2) Preeclampsia, severe: COMMENT: developed intrapartum, nl labs, severe range pressures requiring multiple doses of hydralazine, labetalol. on magnesium. PP BP stable. 110-120s/60-70s. no s/sx of PEC. PLAN: Plan s/p LTCS PPD # 1 1. routine post care 2. breast feeding- support given 3. rh positive 4. rubella immune 5. monitor BP closely. currently stable, no interventions required currently. s/p Magnesium.
[2023-08-04] MEDS: Enoxaparin 40 MG/0.4 ML Syringe SC ×2 (11:17→23:45)
[2023-08-04] MEDS: Senna/Docusate Sodium 1 Tablet PO (11:18)
[2023-08-04] MEDS: Naproxen 500 MG Tablet PO ×2 (14:11→22:13)
--- NOTE | 2023-08-04 15:29 | CASEMGMT ---
Social Work Assessment Labor and Delivery Unit Patient Address:[address] [place] [address]. [place] [address] Phone number: [phone] Date of Referral: 08/03/23 Time of Referral:? [id number] Referred By: Denise Ellis Date of Intervention: ??08/04/23 Time of Intervention:? 1130 Reason for Referral:? substance abuse, history of THC Sw completed chart review and acknowledges social work consult due to history of maternal THC use. Sw presented to bedside and introduced self to mother of baby (MOB- Tonia) and father of baby (FOB- Franklin). Sw explained sw role during hospitalization and completed psychosocial assessment. History obtained from: medical records, MOB and FOB Household composition: Currently residing in the family home is MOB, FOB and now baby when ready for discharge. Parents deny any issues or concerns with housing at this time- report it to be safe and adequate. Patient's parent/guardian status:? ?BLANCO states that she and KHUSHI have been together for 8 years, they started dating in high school. BLANCO denies domestic violence or intimate partner violence. Medical History: ?BLANCO is 22 year old female who is 1, para 0- now 1 following labor and delivery of . BLANCO received routine care with Kinder throughout her . BLANCO presented to hospital and delivered baby via delivery on at 41 weeks gestation. Baby boy, named Ector, was born weighing 8lb 2oz and his apgars were 9 and 9 at one and five minutes of life, respectfully. Baby will be followed by Dr. Baldwin for pediatrics. BLANCO states that she is breast feeding and this is going well. Educational Status:? Both parents graduated from high school and deny any concerns with reading, learning or comprehension. Financial Status: Both parents are gainfully employed outside of the home. 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 Both parents are able to take time off of work now that baby has been born. Infant Supplies:?? Parents have obtained all necessary baby supplies, including: car seat, safe sleep space, clothes, diapers and wipes. BLANCO states that she has a breast pump for home. Childcare/Caregiver(s):? BLANCO will be the primary caregiver to baby along with PEBBLESB when he is not working. Transportation:?? Both parents have their drivers license and reliable means of transportation, no barriers at this time. Programs/Agencies Involved: ???Parents deny being connected to any community resources that help them financially. Children Services/Legal Issues:??? No history of involvement, no issues or concerns warranting referral to be made at this time. Behavioral Health Issues: ??Mental Health History:?FOB and MOB deny mental health diagnoses. ?? Substance Use History:?MOB admits to using marijuana, but prior to . MOB denies any type of substance use during . ? Family History:?Parents deny family history of addiction, substance use, or significant mental health diagnoses such as bipolar and schizophrenia. ? Drug Screens: ?No drug screens observed during chart review. Family/Social Stressors:? Parents deny family stressors or concerns at this time. Support Systems: Parents report that they have a lot of natural supports found in family members and each other Depression/Shaken Baby/Safe Sleeping:? Sw educated parents on signs and symptoms of baby blues and depression and anxiety. Parents express understanding. FOB states that if MOB would struggle he would know how to recognize symptoms and would know how to help and support her. Sw educated parents on shaken baby prevention and ABCs of safe sleep. Parents express understanding. ASSESSMENT:? MOB and baby admitted following labor and delivery of . Parents answered questions asked during sw assessment, but were not overly talkative. Parents appeared happy and engaged in caring for baby. Parents have natural supports in place and have obtained all necessary baby supplies. MOB with substance use history of marijuana, but admits to no use during . Safe Plan of Care for related to substance use:? MOB denies plan on continuing to use marijuana now that baby has been born. PLAN:? MOB and baby to be discharged when medically ready. ?No other services requested or indicated. Shaneka Davis, JUNIOR MECHANICAL ENGINEER, ACCOUNTING REPRESENTATIVE
[2023-08-05 03:38] VITALS: BP 129/80; PULSE 74; RESP 18; TEMP 36.2; O2SAT 99
[2023-08-05] MEDS: Acetaminophen 500 MG Tablet 1000 MG PO ×2 (05:33→11:53)
[2023-08-05] MEDS: Naproxen 500 MG Tablet PO ×2 (06:18→14:30)
[2023-08-05] MEDS: 0.9% Saline Lock 10 ML Syringe IV (06:18)
--- NOTE | 2023-08-05 08:16 | PCM.PN.OB ---
Subjective Subjective Patient doing well without complaints. Tolerating PO. Ambulating and voiding without difficulty. Feeding well. Denies chest pain, shortness of breath, calf pain/swelling, fevers, chills, lightheadedness. Objective Data Objective Data Vital Signs: Vital Signs Temp Pulse Resp BP Pulse Ox O2 Del Method O2 Flow Rate 97.2 F L 74 18 129/80 H 99 Room Air 2 08/05/23 03:38 08/05/23 03:38 08/05/23 03:38 08/05/23 03:38 08/05/23 03:38 08/05/23 03:38 08/04/23 05:15 Oxygen Flow Rate (L/min) 2 Oxygen Delivery Method Room Air Weight: 223 lb Body Mass Index (BMI) 40.8 Intake & Output: Intake and Output for Last 24 Hours 08/03/23 08/04/23 08/05/23 23:59 23:59 23:59 Intake Total 3279.44 / 3279.44 1118.67 / 1118.67 Output Total 4175 / 4175 1800 / 1800 Balance -895.56 / -895.56 -681.33 / -681.33 Lab / Micro Data 08/04/23 06:10 08/04/23 06:10 Physical Exam Const alert and oriented x3 HEENT normocephalic Eyes PERRL Neck full ROM Resp normal respiratory effort GI soft to palpation GI Narrative: FF below U. Dressing dry and intact Palpation: tender other (appropriately) Assessment & Plan (1) delivery delivered: COMMENT: SM LTCS SM 41 IOL postdates AOD 8 cm suspected CPD. preeclampsia on mag job Krishjimbo (2) Preeclampsia, severe: QUALIFIERS: Trimester: unspecified trimester Qualified Code(s): O14.10 - Severe pre-eclampsia, unspecified trimester COMMENT: developed intrapartum, nl labs, severe range pressures requiring multiple doses of hydralazine, labetalol. on magnesium. PP BP stable. 110-120s/60-70s. no s/sx of PEC. (3) Gestational thrombocytopenia: QUALIFIERS: Trimester: unspecified trimester Qualified Code(s): O99.119 - Other diseases of the blood and blood-forming organs and certain disorders involving the immune mechanism complicating , unspecified trimester; D69.6 - Thrombocytopenia, unspecified COMMENT: 141 at 38 wks (4) Rh negative state in antepartum period: COMMENT: rhogam PRN for bleeding and at 28 weeks, Given 05/07/23. PLAN: Plan s/p LTCS PPD # 2 1. routine post care 2. breast feeding- support given 3. rh negative 4. rubella immune 5. home today
[2023-08-05 08:30] VITALS: BP 139/69; PULSE 59; RESP 16; TEMP 36.2; O2SAT 97
[2023-08-05] MEDS: Enoxaparin 40 MG/0.4 ML Syringe SC (11:53)
[2023-08-05] MEDS: Senna/Docusate Sodium 1 Tablet PO (11:53)
[2023-08-05 12:00] VITALS: BP 126/69; PULSE 77; RESP 16; TEMP 36.5; O2SAT 96
== END 2023-08-05 15:05 | disposition home or self-care (01) | DRG 787 ==
PROVIDERS: Admitting Provider Obstetrics & Gynecology; Visit Provider Obstetrics & Gynecology
DX: O65.4 Obstructed labor due to fetopelvic disproportion, unspecified (principal); O99.12 Other diseases of the blood and blood-forming organs and certain disorders involving the immune mechanism complicating childbirth; O99.324 Drug use complicating childbirth; O14.14 Severe pre-eclampsia complicating childbirth; D69.6 Thrombocytopenia, unspecified; E66.9 Obesity, unspecified; F12.90 Cannabis use, unspecified, uncomplicated; O62.0 Primary inadequate contractions; O99.214 Obesity complicating childbirth; Z37.0 Single live birth; O48.0 Post-term pregnancy; Z3A.40 40 weeks gestation of pregnancy; O36.8130 Decreased fetal movements, third trimester, not applicable or unspecified
CPT/HCPCS: 59025; 59050; 76815; 80053; 82565; 82570; 84156; 84450; 84460; 84550; 85025; 85027; 86780; 86850; 86900; 86901; 99221; J7120; A4216; G0378; J2405; J3490